=== PATIENT | female | born 1975 | race Caucasian/White ===

== ENCOUNTER → 2018-11-09 | Outpatient (CLI) | payer OTHER ==
--- NOTE | 2018-11-09 10:49 | RADIOLOGY REPORT (SQ) ---
EXAM DESCRIPTION: BARIUM SWALLOW ESOPHAGUS COMPLETED DATE/TIME: 11/09/2018 8:48 am REASON FOR STUDY: GASTRO ESOPHAGEAL REFLUX DISEASE K21.0 GASTRO-ESOPHAGEAL REFLUX DISEASE WITH ESOP HAGITIS COMPARISON: None. TECHNIQUE: Under fluoroscopic guidance, patient ingested effervescent granules followed by thick and thin barium. Fluoroscopic spot images and routine radiographic images acquired and stored on PACS. 12 MM BARIUM TABLET GIVEN: Yes. No significant delay in passage. LIMITATIONS: None. FLUOROSCOPY TIME: FLUORO TIME: 1 minutes 50 seconds 12 series of digital images saved to PACS. FINDINGS: NEUROMUSCULAR COORDINATION OF SWALLOW: Normal. No aspiration. ESOPHAGEAL MOTILITY: Normal peristalsis. No esophageal spasm. ESOPHAGEAL MUCOSA: Normal mucosa without masses or ulceration. GASTRO-ESOPHAGEAL JUNCTION: There is a small hiatal hernia with gastroesophageal reflux. No Schatzki 's ring. No distal esophageal stricture. NON-GI TRACT STRUCTURES: No significant finding. OTHER: Patient is post gastric sleeve procedure. No gastric outlet abnormalities. Normal gastric em ptying into a normal appearing duodenum. IMPRESSION: Small hiatal hernia with gastroesophageal reflux. No Schatzki's ring. Post gastric sle donna procedure with prompt gastric emptying into a normal appearing duodenum. COMMENT: Quality ID [id number]: Final reports for procedures using fluoroscopy that document radiation exp osure indices, or exposure time and number of fluorographic images (if radiation exposure indices are not available) TECHNICAL DOCUMENTATION: JOB ID: [id number] [employer]- All Rights Reserved Reading location - IP/workstation name: [email or web address]
== END ==
LOC: RAD 07:55
PROVIDERS: ATTEND Physician Assistant
DX: K21.0 Gastro-esophageal reflux disease with esophagitis (principal); K44.9 Diaphragmatic hernia without obstruction or gangrene
CPT/HCPCS: 74220